=== PATIENT | female | born 1935 | race Caucasian/White ===

== ENCOUNTER 2019-02-15 05:14 | Inpatient (IN) | payer MEDICARE ==
[2019-02-10 14:46] LABS: BASOPHILS % (AUTO) 0.3 % (0-1); EOSINOPHILS # (AUTO) 0.1 X10'3 (0-0.9); LYMPHOCYTES # (AUTO) 1.5 X10'3 (1.1-4.8); LYMPHOCYTES % (AUTO) 25.5 % (21-51); MEAN CORPUSCULAR HGB CONC 33.9 g/dL (33.0-36.5); MEAN CORPUSCULAR VOLUME 88.6 FL (78-98); MEAN PLATELET VOLUME 8.7 FL (7.4-10.4); MONOCYTES # (AUTO) 0.5 X10'3 (0-0.9); NEUTROPHILS # (AUTO) 3.7 X10'3 (1.8-7.7); NEUTROPHILS % (AUTO) 63.2 % (42-75); PRE OP HEMATOCRIT 42.2 % (35.0-45.0); PRE OP HEMOGLOBIN 14.3 g/dL (12.0-16.0); PRE OP PLATELET COUNT 251 X10'3 (140-440); RED BLOOD COUNT 4.76 X10'6 (4.20-5.60); RED CELL DISTRIBUTION WIDTH 13.1 % (11.5-14.5)
[2019-02-10 14:58] LABS: PRE OP INR 0.9 INR; PRE OP PROTIME 9.9 SECONDS (9.0-12.0)
[2019-02-10 15:00] LABS: ALBUMIN/GLOBULIN RATIO 1.2 (1.1-1.5); ALKALINE PHOSPHATASE 118 IU/L (46-116); BLOOD UREA NITROGEN 19 MG/DL (7-18); BUN/CREATININE RATIO 28.4 (6.6-38.0); CALCIUM 9.6 MG/DL (8.5-10.1); CHLORIDE 105 MMOL/L (99-107); CREATININE 0.67 MG/DL (0.40-0.90); PRE OP ALT 24 U/L (30-65); PRE OP ANION GAP 5 (8-16); PRE OP AST 28 U/L (10-37); PRE OP BILIRUB, TOTAL 0.4 MG/DL (0.0-1.0); PRE OP GLUCOSE 104 MG/DL (70-104); PRE OP POTASSIUM 4.1 MMOL/L (3.4-5.1); PRE OP SODIUM 140 MMOL/L (135-145); TOTAL CARBON DIOXIDE 30.3 MMOL/L (24-32); TOTAL PROTEIN 7.4 G/DL (6.4-8.2); eGFR 84 ML/MIN
[2019-02-15] VITALS (18 sets, daily range): BP systolic 100–149; BP diastolic 44–84
[~2019-02-15] VITALS: Ht 165.1 cm; Wt 57.2 kg
[~2019-02-15 05:14] MED LIST: CALC1TAB PO; CRAN300T PO; ESTR0.6261 VG; OXYQ113.2 VG
[2019-02-15] MEDS ORDERED: metoclopramide 5 mg/ml inj IV ONE (05:30)
[2019-02-15] MEDS ORDERED: famotidine 20mg tablet PO ONE (05:30)
[2019-02-15] MEDS ORDERED: tranexamic acid inj. 1,000 MG in normal saline 100 ML IV ONE (05:30)
[2019-02-15] MEDS ORDERED: VANCOMYCIN INJ 1000 MG in NORMAL SALINE 250ml IV.SOLN IV ONE (05:30)
[2019-02-15] MEDS ORDERED: cefazolin/dext.iso 2gm/50ml 50 ML IV ONE (05:30)
[2019-02-15] MEDS ORDERED: gabapentin 300mg capsule PO ONE (05:30)
[2019-02-15] MEDS ORDERED: ringers solution, lacted 1,000 ML IV ONE (05:30)
[2019-02-15] MEDS ORDERED: oxyCODONE SR 10mg (sust. release) tab -2 tabs (20mg) PO ONE (05:30)
[2019-02-15] MEDS ORDERED: acetaminophen 325mg tablet PO ONE (05:30)
[2019-02-15] MEDS ORDERED: celeCOXIB 100mg capsule PO ONE (05:30)
[2019-02-15] MEDS ORDERED: LIDOcaine 1% (10mg/ml) 2ml vial ONE (06:14)
[2019-02-15] MEDS ORDERED: acetaminophen 325mg tablet PO PRN (06:30)
[2019-02-15] MEDS ORDERED: diphenhydrAMINE 25mg capsule PO PRN ×2 (06:30)
[2019-02-15] MEDS ORDERED: magnesium hydroxide 30ml (MOM) UD suspension PO PRN (06:30)
[2019-02-15] MEDS ORDERED: HYDROmorphone 1 mg/ml syringe IV PRN (06:30)
[2019-02-15] MEDS ORDERED: HYDROmorphone inj. 0.5 MG/0.5 ML DISP.SYRIN IV PRN ×3 (06:30→08:45)
[2019-02-15] MEDS ORDERED: HYDROcodone/acetaminophen 10/325mg tab PO PRN (06:30)
[2019-02-15] MEDS ORDERED: bisacodyl 10mg suppository rectal RC PRN (06:30)
[2019-02-15] MEDS ORDERED: ketorolac trometh. 30mg/ml inj. ONE (06:50)
[2019-02-15] MEDS ORDERED: ROPIVAcaine 0.5% (5mg/ml) 30ml vial ONE (06:50)
[2019-02-15] MEDS ORDERED: vancomycin 1,000mg inj ONE (06:50)
[2019-02-15] MEDS ORDERED: epiNEPHrine 1 mg/ml inj ONE (06:50)
[2019-02-15] MEDS ORDERED: cloNIDine hcl/PF 100mcg/ml inj ONE (06:50)
[2019-02-15] MEDS ORDERED: fentaNYL/PF 50MCG/1 ML 2ML syringe ONE (07:15)
[2019-02-15] MEDS ORDERED: MIDAZolam 5mg/5ml vial ONE (07:16)
[2019-02-15] MEDS ORDERED: ceFAZolin 1GM/D5W- ADD-VANTAGE 50 ML IV SCH (08:00)
[2019-02-15] MEDS ORDERED: vancomycin/NS 1 GM ADD-VANTAGE 250 ML IV SCH (08:00)
[2019-02-15] MEDS ORDERED: ePHEDrine 50MG/ML INJ. ONE (08:13)
[2019-02-15] MEDS ORDERED: LIDOcaine 1%/PF 5ML 10 MG/ML VIAL ONE (08:21)
[2019-02-15] MEDS: aspirin 325mg tablet PO SCH (08:30)
--- NOTE | 2019-02-15 08:40 | NUR ---
ADMITTED TO PACU FROM OR ACCOMPANIED BY ANESTHESIA. INTIAL PHYSICAL ASSESSMENT DONE AND RECORDED. REPORT RECEIVED FROM ANESTHESIA.
[2019-02-15] MEDS ORDERED: ringers solution, lacted 1,000 ML IV SCH (08:44)
[2019-02-15] MEDS ORDERED: morphine 4 MG/ML inj SYRINge IV PRN (08:45)
[2019-02-15] MEDS ORDERED: ondansetron/PF 4mg/2ml inj IV PRN (08:45)
--- NOTE | 2019-02-15 09:24 | NUR ---
Received report from Cinthia NAZARIO
[2019-02-15] MEDS: ascorbic acid 500mg tablet PO SCH ×2 (09:28→20:11)
[2019-02-15] MEDS: multivitamins, therapeutics tablet PO SCH (09:28)
[2019-02-15] MEDS: gabapentin 300mg capsule PO SCH ×3 (09:29→20:11)
[2019-02-15] MEDS: potassium cl 20mEq in 1/2 NS 1,000 ML IV SCH ×3 (09:29→23:34)
--- NOTE | 2019-02-15 09:40 | NUR ---
PACU DISCHARGE CRITERIA MET, REPORT GIVEN TO FLOOR. DENIES PAIN OR DISCOMFORT, TRANSFERRED TO ROOM IN STABLE GOOD CONDITION.
[2019-02-15] MEDS: ondansetron/PF 4mg/2ml inj IV PRN (14:16)
[2019-02-15] MEDS: HYDROcodone/acetaminophen 10/325mg tab PO PRN ×2 (14:16→23:26)
[2019-02-15] MEDS ORDERED: tranexamic acid inj. 600 MG in normal saline 100ml IV soln 100 ML IV ONE (15:00)
[2019-02-15] MEDS: ceFAZolin 1GM/D5W- ADD-VANTAGE 50 ML IV SCH ×2 (16:00→23:26)
--- NOTE | 2019-02-15 18:10 | NUR ---
Problems reprioritized. Patient report given, questions answered & plan of care reviewed with Isabel NAZARIO.
--- NOTE | 2019-02-15 18:20 | NUR ---
Received report from ARAVIND Hills. Assumed patient care.
[2019-02-15] MEDS: sennosides 8.6mg tablet PO SCH (20:11)
[2019-02-16 02:00] VITALS: BP 109/50
[2019-02-16 05:38] LABS: BASOPHILS % (AUTO) 0.2 % (0-1); EOSINOPHILS # (AUTO) 0.1 X10'3 (0-0.9); EOSINOPHILS % (AUTO) 1.6 % (0-6); HEMATOCRIT 33.4 % (35.0-45.0); HEMOGLOBIN 11.3 g/dl (12.0-16.0); LYMPHOCYTES # (AUTO) 1.5 X10'3 (1.1-4.8); LYMPHOCYTES % (AUTO) 23.5 % (21-51); MEAN CORPUSCULAR HEMOGLOBIN 30.2 PG (27.0-31.0); MEAN CORPUSCULAR HGB CONC 33.9 g/dL (33.0-36.5); MEAN CORPUSCULAR VOLUME 89.3 FL (78-98); MEAN PLATELET VOLUME 8.7 FL (7.4-10.4); MONOCYTES # (AUTO) 0.5 X10'3 (0-0.9); MONOCYTES % (AUTO) 8.6 % (2-12); NEUTROPHILS # (AUTO) 4.1 X10'3 (1.8-7.7); NEUTROPHILS % (AUTO) 66.1 % (42-75); PLATELET COUNT 173 X10'3 (140-440); RED BLOOD COUNT 3.74 X10'6 (4.20-5.60); WHITE BLOOD COUNT 6.2 X10'3 (4.5-11.0)
[2019-02-16 05:56] LABS: ANION GAP 6 (8-16); CHLORIDE 106 MMOL/L (99-107); POTASSIUM 4.3 MMOL/L (3.5-5.1); SODIUM 137 MMOL/L (135-145); TOTAL CARBON DIOXIDE 25.5 MMOL/L (24-32)
--- NOTE | 2019-02-16 06:23 | NUR ---
Patient report given, questions answered and plan of care reviewed with ARAVIND Hills.
[2019-02-16 06:30] VITALS: BP 100/99
--- NOTE | 2019-02-16 06:55 | NUR ---
Patient in room ORTHO 4021. I have received report from Isabel NAZARIO and had the opportunity to ask questions and assume patient care.
[2019-02-16] MEDS: ascorbic acid 500mg tablet PO SCH ×2 (07:41→20:11)
[2019-02-16] MEDS: gabapentin 300mg capsule PO SCH ×3 (07:42→20:11)
[2019-02-16] MEDS: aspirin 325mg tablet PO SCH (07:42)
[2019-02-16] MEDS: multivitamins, therapeutics tablet PO SCH (07:42)
[2019-02-16] MEDS: potassium cl 20mEq in 1/2 NS 1,000 ML IV SCH ×3 (07:43→22:29)
[2019-02-16 10:00] VITALS: BP 109/52
[2019-02-16] MEDS: ondansetron/PF 4mg/2ml inj IV PRN (11:46)
--- NOTE | 2019-02-16 16:08 | NUR ---
Joint replacement: Pt s/p left hip arthroplasty seen at bedside provided with written and verbal protein education and RD contact information. Pt endorses a good appetite which is evident with documented 50-75% PO intake on regular diet. Pt denies any food allergies, difficulty chewing/swallowing or constipation/diarrhea. [facility] 02/15. Will continue to follow. Addendum: 02/16/19 at [address] Amended: Links added.
[2019-02-16 18:00] VITALS: BP 124/44
--- NOTE | 2019-02-16 18:10 | NUR ---
Problems reprioritized. Patient report given, questions answered & plan of care reviewed with Mi Lanier RN.
[2019-02-16] MEDS: sennosides 8.6mg tablet PO SCH (20:11)
[2019-02-16] MEDS: HYDROcodone/acetaminophen 10/325mg tab PO PRN (20:12)
[2019-02-16 22:00] VITALS: BP 130/58
[2019-02-17] MEDS: HYDROcodone/acetaminophen 10/325mg tab PO PRN (05:16)
[2019-02-17 06:00] VITALS: BP 136/69
--- NOTE | 2019-02-17 06:21 | NUR ---
Report given to Damon NAZARIO.
--- NOTE | 2019-02-17 06:27 | NUR ---
Patient in room ORTHO 4021. I have received report from Mi NAZARIO and had the opportunity to ask questions and assume patient care.
[2019-02-17 06:38] LABS: BASOPHILS % (AUTO) 0.2 % (0-1); EOSINOPHILS # (AUTO) 0.1 X10'3 (0-0.9); EOSINOPHILS % (AUTO) 0.7 % (0-6); HEMATOCRIT 33.4 % (35.0-45.0); HEMOGLOBIN 11.8 g/dl (12.0-16.0); LYMPHOCYTES # (AUTO) 0.8 X10'3 (1.1-4.8); LYMPHOCYTES % (AUTO) 10.2 % (21-51); MEAN CORPUSCULAR HEMOGLOBIN 31.4 PG (27.0-31.0); MEAN CORPUSCULAR HGB CONC 35.2 g/dL (33.0-36.5); MONOCYTES # (AUTO) 0.9 X10'3 (0-0.9); MONOCYTES % (AUTO) 11.8 % (2-12); NEUTROPHILS % (AUTO) 77.1 % (42-75); PLATELET COUNT 161 X10'3 (140-440); RED BLOOD COUNT 3.75 X10'6 (4.20-5.60); RED CELL DISTRIBUTION WIDTH 12.7 % (11.5-14.5); WHITE BLOOD COUNT 7.7 X10'3 (4.5-11.0)
[2019-02-17] MEDS: ascorbic acid 500mg tablet PO SCH (07:59)
[2019-02-17] MEDS: gabapentin 300mg capsule PO SCH (07:59)
[2019-02-17] MEDS: multivitamins, therapeutics tablet PO SCH (07:59)
[2019-02-17] MEDS: aspirin 325mg tablet PO SCH (07:59)
[2019-02-17 10:00] VITALS: BP 85/45
--- NOTE | 2019-02-17 10:55 | NUR ---
Safe DC with spouse. all personal items with patient
== END 2019-02-17 10:55 | disposition home or self-care (01) | DRG 470 ==
LOC: PAS IN 05:14 → EDSTATUS 07:30 → ORTHO 4S 09:45
PROVIDERS: ADMIT Orthopaedic Surgery; ATTEND Orthopaedic Surgery
PROC: 0SRB06Z Replacement of Left Hip Joint with Oxidized Zirconium on Polyethylene Synthetic Substitute, Open Approach (ICD-10-PCS; principal; 2019-02-15 07:11)
DX: M16.0 Bilateral primary osteoarthritis of hip (principal); D62 Acute posthemorrhagic anemia; Z79.82 Long term (current) use of aspirin; Z90.49 Acquired absence of other specified parts of digestive tract; Z90.710 Acquired absence of both cervix and uterus; Z79.899 Other long term (current) drug therapy
CPT/HCPCS: 36415; 71046; 72170; 80051; 80053; 82948; 85025; 85610; 85730; 86870; 86885; 86900; 86901; 86906; 87081; 97110; 97116; 97162; 97530; A4615; A7000; C1758; C1776; G0378; J0171; J0690; J0735; J1885; J2001; J2250; J2405; J2765; J2795; J3010; J3370; J3480; J7120

== ENCOUNTER 2019-06-21 14:30 | Outpatient (CLI) | payer MEDICARE ==
[~2019-06-21] VITALS: Ht 165.1 cm; Wt 59.0 kg
[2019-06-21] MEDS ORDERED: MULT-1133 PO (15:01)
[2019-06-21 15:20] LABS: BASOPHILS % (AUTO) 0.2 % (0-1); EOSINOPHILS # (AUTO) 0.1 X10'3 (0-0.9); EOSINOPHILS % (AUTO) 1.4 % (0-6); LYMPHOCYTES # (AUTO) 1.8 X10'3 (1.1-4.8); LYMPHOCYTES % (AUTO) 25.9 % (21-51); MEAN CORPUSCULAR HEMOGLOBIN 29.2 PG (27.0-31.0); MEAN CORPUSCULAR HGB CONC 33.9 g/dL (33.0-36.5); MEAN CORPUSCULAR VOLUME 86.2 FL (78-98); MEAN PLATELET VOLUME 8.5 FL (7.4-10.4); MONOCYTES # (AUTO) 0.6 X10'3 (0-0.9); MONOCYTES % (AUTO) 8.2 % (2-12); NEUTROPHILS # (AUTO) 4.5 X10'3 (1.8-7.7); NEUTROPHILS % (AUTO) 64.3 % (42-75); PRE OP HEMOGLOBIN 14.9 g/dL (12.0-16.0); PRE OP PLATELET COUNT 267 X10'3 (140-440); RED CELL DISTRIBUTION WIDTH 14.5 % (11.5-14.5)
[2019-06-21 15:35] LABS: ALKALINE PHOSPHATASE 110 IU/L (46-116); BLOOD UREA NITROGEN 11 MG/DL (7-18); BUN/CREATININE RATIO 15.1 (6.6-38.0); CALCIUM 9.5 MG/DL (8.5-10.1); CHLORIDE 104 MMOL/L (99-107); CREATININE 0.73 MG/DL (0.40-0.90); PRE OP ALT 18 U/L (30-65); PRE OP ANION GAP 8 (8-16); PRE OP AST 26 U/L (10-37); PRE OP BILIRUB, TOTAL 0.5 MG/DL (0.0-1.0); PRE OP GLUCOSE 95 MG/DL (70-104); PRE OP SODIUM 142 MMOL/L (135-145); TOTAL CARBON DIOXIDE 30.5 MMOL/L (24-32); TOTAL PROTEIN 7.9 G/DL (6.4-8.2); eGFR 76 ML/MIN
[2019-06-28] MEDS ORDERED: ringers solution, lacted 1,000 ML IV SCH (05:00)
[2019-06-28] MEDS ORDERED: metoclopramide 5 mg/ml inj IV ONE (05:30)
[2019-06-28] MEDS ORDERED: cefazolin/dext.iso 2gm/100ml 100 ML IV ONE (05:30)
[2019-06-28] MEDS ORDERED: VANCOMYCIN INJ 1000 MG in NORMAL SALINE 250ml IV.SOLN IV ONE (05:30)
[2019-06-28] MEDS ORDERED: celeCOXIB 100mg capsule PO ONE (05:30)
[2019-06-28] MEDS ORDERED: acetaminophen 325mg tablet PO ONE (05:30)
[2019-06-28] MEDS ORDERED: oxyCODONE SR 10mg (sust. release) tab -2 tabs (20mg) PO ONE (05:30)
[2019-06-28] MEDS ORDERED: tranexamic acid inj. 1,000 MG in normal saline 100 ML IV ONE (05:30)
[2019-06-28] MEDS ORDERED: famotidine 20mg tablet PO ONE (05:30)
[2019-06-28] MEDS ORDERED: gabapentin 300mg capsule PO ONE (05:30)
== END 2019-06-21 23:59 | disposition home or self-care (01) ==
LOC: PRE-OP 14:30 → EDSTATUS 06-28 07:30
PROVIDERS: ATTEND Orthopaedic Surgery
DX: Z01.818 Encounter for other preprocedural examination (principal); M16.11 Unilateral primary osteoarthritis, right hip
CPT/HCPCS: 36415; 71046; 80053; 85025; 86870; 86885; 86900; 86901; 86922; 87081

== ENCOUNTER 2019-08-30 07:33 | Observation (INO) | payer MEDICARE ==
[2019-08-25 14:17] LABS: BASOPHILS % (AUTO) 0.2 % (0-1); EOSINOPHILS # (AUTO) 0.1 X10'3 (0-0.9); EOSINOPHILS % (AUTO) 1.7 % (0-6); LYMPHOCYTES # (AUTO) 1.7 X10'3 (1.1-4.8); LYMPHOCYTES % (AUTO) 25.4 % (21-51); MEAN CORPUSCULAR HGB CONC 33.5 g/dL (33.0-36.5); MEAN CORPUSCULAR VOLUME 89.8 FL (78-98); MEAN PLATELET VOLUME 9.1 FL (7.4-10.4); MONOCYTES # (AUTO) 0.6 X10'3 (0-0.9); MONOCYTES % (AUTO) 9.4 % (2-12); NEUTROPHILS # (AUTO) 4.3 X10'3 (1.8-7.7); NEUTROPHILS % (AUTO) 63.3 % (42-75); PRE OP HEMOGLOBIN 14.1 g/dL (12.0-16.0); PRE OP PLATELET COUNT 252 X10'3 (140-440); RED BLOOD COUNT 4.68 X10'6 (4.20-5.60); RED CELL DISTRIBUTION WIDTH 13.1 % (11.5-14.5)
[2019-08-25 14:38] LABS: ALBUMIN 3.7 G/DL (3.4-5.0); ALBUMIN/GLOBULIN RATIO 1.2 (1.1-1.5); ALKALINE PHOSPHATASE 129 IU/L (46-116); BLOOD UREA NITROGEN 22 MG/DL (7-18); BUN/CREATININE RATIO 25.9 (6.6-38.0); CALCIUM 8.8 MG/DL (8.5-10.1); CHLORIDE 108 MMOL/L (99-107); CREATININE 0.85 MG/DL (0.40-0.90); PRE OP ALT 18 U/L (30-65); PRE OP ANION GAP 7 (8-16); PRE OP AST 23 U/L (10-37); PRE OP BILIRUB, TOTAL 0.3 MG/DL (0.0-1.0); PRE OP GLUCOSE 107 MG/DL (70-104); PRE OP POTASSIUM 3.9 MMOL/L (3.4-5.1); PRE OP SODIUM 144 MMOL/L (135-145); TOTAL PROTEIN 6.7 G/DL (6.4-8.2); eGFR 64 ML/MIN
[2019-08-30] VITALS (25 sets, daily range): BP systolic 78–143; BP diastolic 36–85
[~2019-08-30] VITALS: Ht 165.1 cm; Wt 59.0 kg
[2019-08-30] MEDS: potassium cl 20mEq in 1/2 NS 1,000 ML IV SCH ×3 (06:44→22:44)
[~2019-08-30 07:33] MED LIST changes: +HYDROcodone/acetaminophen 10/325mg tab PO PRN; +HYDROmorphone 1 mg/ml syringe IV PRN; +HYDROmorphone inj. 0.5 MG/0.5 ML DISP.SYRIN IV PRN; +MULT-1133 PO; +ROPIVAcaine 0.5% (5mg/ml) 30ml vial ONE; +VANCOMYCIN INJ 1000 MG in NORMAL SALINE 250ml IV.SOLN IV ONE; +acetaminophen 325mg tablet PO ONE; +bisacodyl 10mg suppository rectal RC PRN; +ceFAZolin 2gm in dextrose, iso 50 ML IV ONE; +celeCOXIB 100mg capsule PO ONE; +cloNIDine hcl/PF 100mcg/ml inj ONE; +diphenhydrAMINE 25mg capsule PO PRN; +epiNEPHrine 1 mg/ml inj ONE; +famotidine 20mg tablet PO ONE; +gabapentin 300mg capsule PO ONE; +magnesium hydroxide 30ml (MOM) UD suspension PO PRN; +metoclopramide 5 mg/ml inj IV ONE; +ondansetron/PF 4mg/2ml inj IV PRN; +oxyCODONE SR 10mg (sust. release) tab -2 tabs (20mg) PO ONE; +ringers solution, lacted 1,000 ML IV SCH; +tranexamic acid inj. 1,000 MG in normal saline 100 ML IV ONE; +vancomycin 1,000mg inj ONE
[2019-08-30] MEDS: gabapentin 300mg capsule PO SCH ×3 (08:00→20:30)
[2019-08-30] MEDS: ascorbic acid 500mg tablet PO SCH ×2 (08:00→20:30)
[2019-08-30] MEDS: multivitamins, therapeutics tablet PO SCH (08:00)
[2019-08-30] MEDS ORDERED: vancomycin/NS 1 GM ADD-VANTAGE 250 ML IV SCH ×2 (08:00→20:00)
[2019-08-30] MEDS ORDERED: LIDOcaine 1% (10mg/ml) 2ml vial ONE (08:19)
[2019-08-30] MEDS: aspirin 325mg tablet PO SCH (08:30)
[2019-08-30] MEDS ORDERED: fentaNYL/PF 50MCG/1 ML 2ML syringe ONE (08:39)
[2019-08-30] MEDS ORDERED: MIDAZolam 1mg/ml 10ml vial ONE (08:39)
[2019-08-30] MEDS ORDERED: ringers solution, lacted 1,000 ML IV SCH (08:44)
[2019-08-30] MEDS ORDERED: hydrALAZINE 20mg/ml inj. IV PRN (08:45)
[2019-08-30] MEDS ORDERED: morphine 4 MG/ML inj SYRINge IV PRN (08:45)
[2019-08-30] MEDS ORDERED: morphine 2 MG/ML inj. syringe IV PRN (08:45)
[2019-08-30] MEDS ORDERED: fentaNYL/PF 50MCG/1 ML 2ML syringe IV PRN ×2 (08:45)
[2019-08-30] MEDS ORDERED: labetalol 20mg/4ml (5mg/ml) syringe IV PRN (08:45)
[2019-08-30] MEDS ORDERED: ondansetron/PF 4mg/2ml inj IV PRN (08:45)
[2019-08-30] MEDS ORDERED: ketorolac trometh. 30mg/ml inj. ONE (09:27)
--- NOTE | 2019-08-30 10:17 | NUR ---
Received from OR via , accompanied by Anesthesiologist DR PACHECO and report given by Anesthesiolgist. AWAKENS TO VOCIE. VITALS STABLE. DRESSING DI. YOHANA PAIN. SENSATION AT ABDOMEN.
--- NOTE | 2019-08-30 12:27 | NUR ---
Report called to receiving nurse. Transferred via BED Belongings . Special Issues communicated to receiving nurse. AWAKE AND ORIENTED. VITALS STABLE. DRESSING DI. YOHANA PAIN. STARTING TO MOVE FEET. TO ORTHO RM 4008 AT THIS TIME.
[2019-08-30] MEDS: ceFAZolin 1GM/D5W- ADD-VANTAGE 50 ML IV SCH (15:43)
[2019-08-30] MEDS ORDERED: tranexamic acid inj. 1,000 MG in normal saline 100ml IV soln 100 ML IV ONE (16:00)
[2019-08-30] MEDS: acetaminophen 325mg tablet PO PRN ×2 (16:34→22:16)
[2019-08-30] MEDS ORDERED: sennosides 8.6mg tablet PO SCH (21:00)
[2019-08-31] MEDS: ceFAZolin 1GM/D5W- ADD-VANTAGE 50 ML IV SCH (01:05)
[2019-08-31 02:00] VITALS: BP 103/47
[2019-08-31 06:00] VITALS: BP 120/52
--- NOTE | 2019-08-31 06:26 | NUR ---
Patient in room ORTHO 4008. I have received report from Lexie NAZARIO and had the opportunity to ask questions and assume patient care.
--- NOTE | 2019-08-31 06:39 | NUR ---
REPORT GIVEN TO ARAVIND ROBERT.
[2019-08-31] MEDS: potassium cl 20mEq in 1/2 NS 1,000 ML IV SCH (06:44)
[2019-08-31] MEDS: ascorbic acid 500mg tablet PO SCH (07:19)
[2019-08-31] MEDS: aspirin 325mg tablet PO SCH (07:19)
[2019-08-31] MEDS: multivitamins, therapeutics tablet PO SCH (07:19)
[2019-08-31] MEDS: gabapentin 300mg capsule PO SCH (07:20)
[2019-08-31] MEDS ORDERED: ASPI-1 PO (07:39)
[2019-08-31 08:18] LABS: BASOPHILS % (AUTO) 0.3 % (0-1); EOSINOPHILS # (AUTO) 0.1 X10'3 (0-0.9); EOSINOPHILS % (AUTO) 2.5 % (0-6); HEMATOCRIT 38.7 % (35.0-45.0); LYMPHOCYTES # (AUTO) 0.7 X10'3 (1.1-4.8); LYMPHOCYTES % (AUTO) 12.3 % (21-51); MEAN CORPUSCULAR HEMOGLOBIN 30.2 PG (27.0-31.0); MEAN CORPUSCULAR HGB CONC 33.6 g/dL (33.0-36.5); MEAN PLATELET VOLUME 9.1 FL (7.4-10.4); MONOCYTES # (AUTO) 0.5 X10'3 (0-0.9); NEUTROPHILS # (AUTO) 4.7 X10'3 (1.8-7.7); NEUTROPHILS % (AUTO) 76.9 % (42-75); PLATELET COUNT 181 X10'3 (140-440); RED BLOOD COUNT 4.31 X10'6 (4.20-5.60); RED CELL DISTRIBUTION WIDTH 12.9 % (11.5-14.5); WHITE BLOOD COUNT 6.1 X10'3 (4.5-11.0)
[2019-08-31 08:33] LABS: ANION GAP 6 (8-16); CHLORIDE 110 MMOL/L (99-107); POTASSIUM 4.5 MMOL/L (3.5-5.1); SODIUM 142 MMOL/L (135-145); TOTAL CARBON DIOXIDE 25.6 MMOL/L (24-32)
[2019-08-31 09:52] VITALS: BP 114/49
--- NOTE | 2019-08-31 12:05 | NUR ---
Patient stable for discharge home today. All belongings sent with patient. Discharge instructions given to patient and questions answered. IV discontinued and cannula intact.
--- NOTE | 2019-08-31 12:28 | NUR ---
Joint Replacement Consult: Pt seen by RD for written/verbal high protein ed w/ RD contact information provided. Pt PO 100% first regular diet in process of discharge during RD visit. Addendum: 08/31/19 at [address] Amended: Links added.
== END 2019-08-31 11:45 | disposition home or self-care (01) ==
LOC: PAS 07:33 → ORTHO 4S 12:00
PROVIDERS: ADMIT Orthopaedic Surgery; ATTEND Orthopaedic Surgery
DX: Z03.818 Encounter for observation for suspected exposure to other biological agents ruled out (principal); M16.11 Unilateral primary osteoarthritis, right hip
CPT/HCPCS: 27130; 36415; 72170; 80051; 80053; 85025; 86870; 86885; 86900; 86901; 86922; 87081; 96365; 96366; 96367; 96375; 97116; 97161; 97530; C1776; G0378; J0171; J0690; J0735; J1885; J2001; J2250; J2765; J3010; J3370; J7120; U0003; 86920; A7000; J2795; J3480